=== PATIENT | female | born 1970 | race Caucasian/White ===

== ENCOUNTER → 2021-05-10 15:50 | Outpatient (BNVA) | payer MEDICARE, MEDICAID, SELFPAY | PROVIDERS: Family Provider Nurse Practitioner Family; PCP Nurse Practitioner Family; Visit Provider Emergency Medicine | DX: N39.0 Urinary tract infection, site not specified (principal) | CPT/HCPCS: 81000; 87077; 87086; 87184 ==

== ENCOUNTER → 2021-11-05 14:14 | Outpatient (BNVA) | payer MEDICARE, MEDICAID, SELFPAY | PROVIDERS: Family Provider Nurse Practitioner Family; PCP Nurse Practitioner Family; Visit Provider Podiatrist Foot & Ankle Surgery | DX: Z47.89 Encounter for other orthopedic aftercare (principal); M19.071 Primary osteoarthritis, right ankle and foot; M20.11 Hallux valgus (acquired), right foot | CPT/HCPCS: 73630 ==

== ENCOUNTER → 2022-06-02 15:26 | Outpatient (BNVA) | payer MEDICARE, MEDICAID, SELFPAY | PROVIDERS: Family Provider Nurse Practitioner Family; PCP Family Medicine; Visit Provider Podiatrist Foot & Ankle Surgery | DX: M21.611 Bunion of right foot (principal); M21.612 Bunion of left foot; M21.621 Bunionette of right foot; M21.622 Bunionette of left foot; M20.41 Other hammer toe(s) (acquired), right foot; M20.42 Other hammer toe(s) (acquired), left foot; M21.41 Flat foot [pes planus] (acquired), right foot; M21.42 Flat foot [pes planus] (acquired), left foot | CPT/HCPCS: 99214; 99215 ==

== ENCOUNTER → 2023-07-01 17:07 | Outpatient (BNVA) | payer MEDICARE, MEDICAID, SELFPAY | PROVIDERS: Family Provider Nurse Practitioner Family; PCP Family Medicine; Visit Provider Emergency Medicine | DX: R39.9 Unspecified symptoms and signs involving the genitourinary system | CPT/HCPCS: 81000; 87086 ==

== ENCOUNTER → 2024-01-04 14:51 | Outpatient (BNVA) | payer MEDICARE, MEDICAID, SELFPAY | PROVIDERS: Family Provider Nurse Practitioner Family; PCP Family Medicine; Visit Provider Podiatrist Foot & Ankle Surgery | DX: L60.8 Other nail disorders (principal); M21.41 Flat foot [pes planus] (acquired), right foot; M21.42 Flat foot [pes planus] (acquired), left foot; M20.41 Other hammer toe(s) (acquired), right foot; M20.42 Other hammer toe(s) (acquired), left foot; M21.621 Bunionette of right foot; M21.622 Bunionette of left foot; M21.611 Bunion of right foot; M21.612 Bunion of left foot | CPT/HCPCS: 99213 ==

== ENCOUNTER → 2024-02-02 16:53 | Outpatient (BNVA) | payer MEDICARE, MEDICAID, SELFPAY | PROVIDERS: Family Provider Nurse Practitioner Family; PCP Family Medicine; Visit Provider Podiatrist Foot & Ankle Surgery | DX: B35.1 Tinea unguium (principal); Z79.899 Other long term (current) drug therapy | CPT/HCPCS: 80053 ==

== ENCOUNTER → 2024-04-06 09:44 | Outpatient (BNVA) | payer MEDICARE, MEDICAID, SELFPAY | PROVIDERS: Family Provider Nurse Practitioner Family; PCP Family Medicine; Visit Provider Specialist | DX: M75.111 Incomplete rotator cuff tear or rupture of right shoulder, not specified as traumatic (principal); M25.811 Other specified joint disorders, right shoulder; M75.112 Incomplete rotator cuff tear or rupture of left shoulder, not specified as traumatic; M19.012 Primary osteoarthritis, left shoulder | CPT/HCPCS: 73030; 99204 ==

== ENCOUNTER 2024-04-27 09:41 | Outpatient (RCR) | payer MEDICARE, MEDICAID, SELFPAY | END 2024-04-30 18:00 | disposition home or self-care (01) | LOC: MPT 09:41 | PROVIDERS: Visit Provider Specialist | DX: M25.511 Pain in right shoulder (principal) | CPT/HCPCS: 97162 ==

== ENCOUNTER → 2024-11-10 13:07 | Outpatient (BNVA) | payer MEDICAID, SELFPAY | PROVIDERS: PCP Family Medicine; Visit Provider Podiatrist Foot & Ankle Surgery | DX: M21.611 Bunion of right foot (principal); M79.671 Pain in right foot | CPT/HCPCS: 73630; 99213 ==